=== PATIENT | female | born 1985 | race American Indian/Alaskan Native ===

== ENCOUNTER 2019-04-06 08:38 | Day surgery (SDC) | payer OTHER ==
[~2019-04-06 08:38] MED LIST: NACL 0.9% 1000 ML 1,000 ML IV SCH
[2019-04-06] MEDS ORDERED: XYLOCAINE MPF 2% ONE (10:00)
[2019-04-06] MEDS ORDERED: SUBLIMAZE ONE (10:17)
[2019-04-06] MEDS ORDERED: VERSED ONE (10:17)
[2019-04-06] MEDS ORDERED: DIPRIVAN 10 MG/ML IV ONE (10:18)
--- NOTE | 2019-04-06 10:39 | Procedure Note ---
Date of procedure: 04/06/19 Pre-op diagnosis: Odynophagia Post-op diagnosis: other (R/O Eosinophilic Esophagitis/ Gastritis/ R/O Celiac Disease/ Mild,Distal Esophagitis)
--- NOTE | 2019-04-06 10:42 | Operative Report ---
PROCEDURE: Esophagogastroduodenoscopy with biopsy. INDICATIONS: A 34-year-old -[place] female who has an underlying history of asthma and lately has been having some odynophagia. EGD was done to assess for the issue and to rule out for any associated eosinophilic esophagitis. DESCRIPTION OF PROCEDURE: The procedure was done after getting informed consent with MAC anesthesia. Instrument was passed through the hypopharynx into the esophagus, which showed some mild distal esophagitis. The stomach showed some mild gastritis. Biopsy was done from the antrum, the gastric body and angular incisura. The pylorus was patent. The duodenum in the first and second portion appeared normal. Biopsy was done from the second part to rule out for possible celiac disease. Additional biopsy was done from the midesophagus to rule out for eosinophilic esophagitis. There was minimal bleeding from the biopsy sites. No complications associated with the procedure. ASSESSMENT: Odynophagia, rule out eosinophilic esophagitis, gastritis, rule out celiac disease. Mild distal esophagitis. Plan is to treat the patient with PPI. Await for the biopsy results, have the patient avoid aspirin and aspirin-related products for the next few days and follow up in the office in 1-2 weeks' time. Further adjustment of treatment will be according to the biopsy findings. The patient's procedure was done in the GI lab with assistance of the GI lab in the presence and with the assistance of the GI lab team, which included JESSICA Aguirre as well as shiv Brooks and with assistance of anesthesia. JOB# [id number] CJ/GHASSAN
--- NOTE | 2019-04-06 11:16 | Anesthesia Consultation ---
Anesthesia Consult and Med Hx Date of service: 04/06/19 - Airway Anesthetic Teeth Evaluation: Good ROM Head & Neck: Adequate Mental/Hyoid Distance: Adequate Mallampati Class: Class I Intubation Access Assessment: Good - Pulmonary Exam CTA: Yes - Cardiac Exam Cardiac Exam: RRR - Pre-Operative Health Status ASA Pre-Surgery Classification: ASA2 Proposed Anesthetic Plan: MAC - Pulmonary Hx Asthma: Yes
--- NOTE | 2019-04-06 11:16 | Anesthesia Day of Surgery ---
Anesthesia Day of Surgery - Day of Surgery Patient Examined: Yes Patient H&P Reviewed: Yes Patient is NPO: Yes
[2019-04-06 13:00] VITALS: BP 124/73
== END 2019-04-06 08:39 | disposition home or self-care (01) ==
LOC: GIO 08:38
DX: K29.50 Unspecified chronic gastritis without bleeding (principal); K21.0 Gastro-esophageal reflux disease with esophagitis; K31.89 Other diseases of stomach and duodenum; J45.909 Unspecified asthma, uncomplicated; Z79.899 Other long term (current) drug therapy
CPT/HCPCS: 81025; 88305; 88342; J2250; J2704; J3010; J7030